=== PATIENT | female | born 1980 | race Caucasian/White ===

== ENCOUNTER 2018-01-11 03:45 | Inpatient (IN) | payer OTHER ==
[~2018-01-11] VITALS: Ht 177.8 cm; Wt 109.1 kg
[~2018-01-11 03:45] MED LIST: DOCU-131 PO; IBUP-1222 PO; OXYC-302 PO
[2018-01-11] MEDS ORDERED: D5%-LACTATED RINGERS 1,000 ML IV SCH (03:52)
[2018-01-11] MEDS ORDERED: OXYTOCIN 30U/ 0.9% NaCL 500ML 500 ML IV ONE (03:52)
[2018-01-11] MEDS ORDERED: LACTATED RINGERS 1,000 ML IV SCH (03:52)
[2018-01-11] MEDS ORDERED: CALCIUM CARBONATE 500 MG TAB.CHEW PO PRN (04:00)
[2018-01-11] MEDS ORDERED: ONDANSETRON 2MG/ML, 2ML IVPush PRN (04:00)
[2018-01-11] MEDS ORDERED: FENTANYL PF 100 MCG/2ML IV PRN (04:00)
[2018-01-11] MEDS ORDERED: FENTANYL PF 100 MCG/2ML IVPush PRN (04:00)
[2018-01-11] MEDS ORDERED: OXYTOCIN 10 UNITS/ML, 1ML IM PRN (04:00)
[2018-01-11 04:22] LABS: BASOPHILS # (AUTO) 0.06 x10^3/uL (0-0.1); BASOPHILS % (AUTO) 0 % (0-1); EOSINOPHILS # (AUTO) 0.02 x10^3/uL (0-0.4); EOSINOPHILS % (AUTO) 0 % (1-7); LYMPHOCYTES % (AUTO) 15 % (22-44); MD NO; MEAN CORPUSCULAR HGB CONC 33.8 g/dL (32.4-35.8); MEAN CORPUSCULAR VOLUME 82.9 fL (80-100); MEAN PLATELET VOLUME 7.8 fL (7.4-10.4); MONOCYTES # (AUTO) 0.62 x10^3/uL (0.2-0.8); MONOCYTES % (AUTO) 4 % (2-9); NEUTROPHILS # (AUTO) 14.34 x10^3/uL (1.8-6.8); NEUTROPHILS % (AUTO) 81 % (42-75); PLATELET COUNT 364 x10^3/uL (130-400); RED BLOOD COUNT 5.02 x10^6/uL (3.82-5.3); RED CELL DISTRIBUTION WIDTH 12.9 % (9.6-15.2)
[2018-01-11] MEDS ORDERED: OXYTOCIN 30U/ 0.9% NaCL 500ML 500 ML ONE (05:14)
[2018-01-11] MEDS ORDERED: IBUPROFEN 600 MG TABLET ONE (05:14)
[2018-01-11] MEDS: IBUPROFEN 600 MG TABLET PO PRN ×3 (05:17→18:34)
[2018-01-11] MEDS: OXYTOCIN 30U/ 0.9% NaCL 500ML 500 ML IV SCH ×2 (05:19→15:09)
[2018-01-11] MEDS ORDERED: MISOPROSTOL 200 MCG TABLET PR PRN (05:30)
[2018-01-11] MEDS ORDERED: ACETAMINOPHEN 325 MG TABLET PO PRN ×2 (05:30)
[2018-01-11] MEDS ORDERED: HYDROcodone/APAP 5/325 TABLET PO PRN ×2 (05:30)
[2018-01-11 07:25] VITALS: BP 113/72
[2018-01-11] MEDS: DOCUSATE 100 MG CAPSULE PO PRN ×2 (09:18→11:54)
[2018-01-11] MEDS: PRENATAL VIT/IRON/FA 1 EACH TABLET PO SCH (09:18)
[2018-01-11 12:20] VITALS: BP 114/69
[2018-01-11 12:56] LABS: BASOPHILS # (AUTO) 0.06 x10^3/uL (0-0.1); BASOPHILS % (AUTO) 0 % (0-1); EOSINOPHILS # (AUTO) 0.01 x10^3/uL (0-0.4); EOSINOPHILS % (AUTO) 0 % (1-7); LYMPHOCYTES # (AUTO) 2.23 x10^3/uL (1-3.4); LYMPHOCYTES % (AUTO) 14 % (22-44); MD NO; MEAN CORPUSCULAR HEMOGLOBIN 28.1 pg (27.0-34.8); MEAN CORPUSCULAR HGB CONC 33.6 g/dL (32.4-35.8); MEAN CORPUSCULAR VOLUME 83.7 fL (80-100); MEAN PLATELET VOLUME 7.7 fL (7.4-10.4); MONOCYTES # (AUTO) 0.43 x10^3/uL (0.2-0.8); MONOCYTES % (AUTO) 3 % (2-9); NEUTROPHILS # (AUTO) 12.71 x10^3/uL (1.8-6.8); NEUTROPHILS % (AUTO) 82 % (42-75); PLATELET COUNT 241 x10^3/uL (130-400); RED CELL DISTRIBUTION WIDTH 13.3 % (9.6-15.2)
[2018-01-11 16:30] VITALS: BP 113/70
[2018-01-11 18:17] VITALS: BP 127/85
[2018-01-11 19:45] VITALS: BP 104/65
[2018-01-12] MEDS: DOCUSATE 100 MG CAPSULE PO PRN ×2 (00:56→08:50)
[2018-01-12] MEDS: IBUPROFEN 600 MG TABLET PO PRN ×2 (00:56→06:25)
[2018-01-12 01:00] VITALS: BP 98/64
[2018-01-12 04:00] VITALS: BP 101/62
[2018-01-12 08:20] VITALS: BP 104/61
[2018-01-12] MEDS: PRENATAL VIT/IRON/FA 1 EACH TABLET PO SCH (08:50)
[2018-01-12] MEDS ORDERED: IBUP-1222 PO (09:27)
[2018-01-12] MEDS ORDERED: HYDR-3240 PO (09:29)
[2018-01-12] MEDS ORDERED: MEASLES,MUMPS&RUBELLA VACC/PF 0.5 ML SQ-VACC ONE ×2 (10:29→11:00)
== END 2018-01-12 13:00 | disposition home or self-care (01) | DRG 807 ==
LOC: LDIP 03:45 → 2NW 06:53
PROVIDERS: ADMIT Obstetrics & Gynecology; ATTEND Obstetrics & Gynecology
PROC: 10E0XZZ Delivery of Products of Conception, External Approach (ICD-10-PCS; principal; 2018-01-11)
PROC: 0KQM0ZZ Repair Perineum Muscle, Open Approach (ICD-10-PCS; 2018-01-11)
DX: O34.211 Maternal care for low transverse scar from previous cesarean delivery (principal); Z37.0 Single live birth; O70.1 Second degree perineal laceration during delivery; Z3A.39 39 weeks gestation of pregnancy
CPT/HCPCS: 36415; 85025; 86850; 86900; 99285; G0378; J2590